=== PATIENT | female | born 1970 | race Caucasian/White ===

== ENCOUNTER 2018-11-16 20:00 | Inpatient (IN) | payer MEDICAID ==
[~2018-11-16] VITALS: Ht 157.5 cm; Wt 81.5 kg
[~2018-11-16 20:00] MED LIST: MTF1000T PO
[2018-11-16 20:32] VITALS: Ht 157.5 cm; Wt 81.5 kg
[2018-11-16] MEDS ORDERED: PIPER-TAZO 3.375 GM IV (PMX) 100 ML IVPB STA (20:43)
[2018-11-16] MEDS ORDERED: SODIUM CHLORIDE 0.9% 1L BAG IV* STA (20:43)
[2018-11-16] MEDS ORDERED: VANCOMYCIN 1 GM (PMX) 250 ML IVPB STA (20:43)
[2018-11-16] MEDS ORDERED: ONDANSETRON 4 MG INJ IV STA (20:43)
[2018-11-16] MEDS ORDERED: ACETAMINOPHEN 325 MG TAB PO STA (20:43)
[2018-11-16] MEDS ORDERED: CLINDAMYCIN 900 MG/D5W (PMX) 50 ML IVPB STA (20:43)
[2018-11-16] MEDS ORDERED: morphine 4 MG/ML VIAL IV STA (20:43)
[2018-11-16] MEDS ORDERED: GLUCOSE GEL 15 GRAM TUBE PO PRN ×2 (22:00)
[2018-11-16] MEDS ORDERED: GLUCAGON 1 MG INJ IM PRN (22:00)
[2018-11-16] MEDS ORDERED: ACCU-CHEK XX ONE (22:00)
[2018-11-16] MEDS ORDERED: GLUCOSE GEL 15 GRAM TUBE BUCCAL PRN (22:00)
[2018-11-16] MEDS ORDERED: DEXTROSE 50% 50 ML SYRINGE IV PRN ×2 (22:00)
[2018-11-16] MEDS ORDERED: INSULIN LISPRO 100 UNIT/ML VIAL SC ONE (22:00)
--- NOTE | 2018-11-16 23:05 | ERD ---
ER Documentation Chief Complaint Chief Complaint C/O LT SIDED CP, LT FLANK PAIN, LT GROING PAIN, COUGH AND CHILLS X6 DAYS HPI 47-year-old female with a history of diabetes presents to the emergency room with multiple complaints. The patient is very limited and difficult historian. She states poor compliance with diabetes regimen. Her main complaint is that patient is having left-sided mons pubis swelling and pain. Patient also describes a multitude of different complaints including left-sided chest pain, abdominal pain, cough and chills. The patient is noted to have a fever at triage. A code sepsis was initiated. Remainder of HPI is somewhat limited. Pain is moderate, constant and worse with movement. Translation services were utilized during this patient's encounter Language: Guatemalan Source: In person ROS All systems reviewed and are negative except as per history of present illness. Medications Home Meds Reported Medications Metformin* (Glucophage*) 1,000 Mg Tablet, 1000 MG PO WITH BREAKFAST DINNE, #30 TAB 11/16/18 Allergies Allergies: Coded Allergies: No Known Allergy (Unverified , 11/16/18) PMhx/Soc Medical and Surgical Hx: pt denies Surgical Hx History of Surgery: No Anesthesia Reaction: No Hx Neurological Disorder: No Hx Respiratory Disorders: No Hx Cardiac Disorders: Yes (HTN) Hx Psychiatric Problems: No Hx Miscellaneous Medical Probl: No Hx Alcohol Use: No Hx Substance Use: No Hx Tobacco Use: No Smoking Status: Never smoker FmHx Family History: diabetes Physical Exam Vitals Vital Signs Date Temp Pulse Resp B/P (MAP) Pulse Ox O2 O2 Flow FiO2 Time Delivery Rate 11/16/18 100.7 100 18 185/93 94 Room Air 20:58 (123) 11/16/18 101.2 109 22 179/91 95 20:32 (120) Physical Exam General: Nourished Head: Normocephalic, atraumatic. Eyes: Pupils equally reactive, EOM intact ENT: Moist mucous membranes Neck: Supple, no lymphadenopathy Respiratory: Lungs clear bilaterally, no distress Cardiovascular: Tachycardia, no murmurs, rubs, or gallops Abdominal: Soft, non-tender, non-distended, no peritoneal signs : Chaperoned exam reveals swelling erythema warmth and tenderness to the mons pubis on the left side with associated crepitus. MSK: No edema, no unilateral swelling, 5/5 strength Neurologic: Alert and oriented, moving all extremities, normal speech, no focal weakness, no cerebellar signs Skin: No rash Psych: Normal mood Result Diagram: 11/16/18202911/16/18 2030 Results 24 hrs Laboratory Tests Test 11/16/18 20:30 11/16/18 20:46 11/16/18 22:33 White Blood Count 14.7 10^3/ul Red Blood Count 4.04 10^6/ul Hemoglobin 11.1 g/dl Hematocrit 33.4 % Mean Corpuscular Volume 82.7 fl Mean Corpuscular Hemoglobin 27.5 pg Mean Corpuscular 33.2 g/dl Hemoglobin Concent Red Cell Distribution Width 16.2 % Platelet Count 269 10^3/UL Mean Platelet Volume 13.8 fl Immature Granulocytes % 1.400 % Neutrophils % % Segmented Neutrophils % (Manual) 69 % Band Neutrophils % (Manual) 18 % Lymphocytes % % Lymphocytes % (Manual) 6 % Monocytes % % Monocytes % (Manual) 5 % Eosinophils % % Basophils % % Myelocytes % (Manual) 1 % Promyelocytes % (Manual) 1 % Nucleated Red Blood Cells % 0.3 /100WBC Immature Granulocytes # 0.200 10^3/ul Neutrophils # 10^3/ul Neutrophils # (Manual) 10.5 10^3/ul Band Neutrophils # 2.6 10^3/ul Lymphocytes (Manual) 0.8 10^3/ul Lymphocytes # 10^3/ul Monocytes # 10^3/ul Monocytes # (Manual) 0.7 10^3/ul Eosinophils # 10^3/ul Basophils # 10^3/ul Myelocytes # 0.1 10^3/ul Promyelocytes # 0.1 10^3/ul Nucleated Red Blood Cells # 10^3/ul Platelet Estimate NORMAL Giant Platelets 1 % Polychromasia 1+ Poikilocytosis 1+ Anisocytosis 1+ Macrocytosis 1+ Erythrocyte Sedimentation Rate 125 mm/Hr Prothrombin Time 15.4 Sec Prothrombin Time Ratio 1.2 INR International Normalized Ratio 1.21 Activated Partial Thromboplast 33.1 Sec Time Sodium Level 124 mmol/L Potassium Level 3.5 mmol/L Chloride Level 87 mmol/L Carbon Dioxide Level 23 mmol/L Anion Gap 14 Blood Urea Nitrogen 56 mg/dl Creatinine 2.00 mg/dl Est Glomerular Filtrat Rate mL/min 27 mL/min Glucose Level 631 mg/dl Calcium Level 8.3 mg/dl Total Bilirubin 0.3 mg/dl Direct Bilirubin 0.00 mg/dl Indirect Bilirubin 0.3 mg/dl Aspartate Amino Transf (AST/SGOT) 34 IU/L Alanine 42 IU/L Aminotransferase (ALT/SGPT) Alkaline Phosphatase 304 IU/L Troponin I 0.018 ng/ml C-Reactive Protein 58.9 mg/dl Total Protein 6.8 g/dl Albumin 2.7 g/dl Globulin 4.10 g/dl Albumin/Globulin Ratio 0.65 Serum HCG, Qualitative NEGATIVE POC Venous Lactate 2.3 mmol/L Bedside Glucose 552 mg/dL Current Medications Medications Dose Sig/Marybeth Start Time Status Last (Trade) Ordered Route PRN Stop Time Admin Dose Reason Admin Sodium 2,450 ml BOLUS OVER 2 11/16/18 DC 11/16/18 Chloride HOURS STAT 20:43 20:50 (NS) IV* 11/16/18 20:47 650 mg ONCE STAT 11/16/18 DC 11/16/18 Acetaminophen PO 20:43 20:53 (Tylenol 11/16/18 20:47 Tab) Morphine 4 mg ONCE STAT 11/16/18 DC 11/16/18 Sulfate IV 20:43 20:52 (morphine) 11/16/18 20:47 Ondansetron 4 mg ONCE STAT 11/16/18 DC 11/16/18 HCl (Zofran IV 20:43 20:52 Inj) 11/16/18 20:47 Vancomycin 250 ml @ ONCE STAT 11/16/18 DC 11/16/18 HCl 125 mls/hr IVPB 20:43 21:36 11/16/18 22:42 Clindamycin 50 ml @ 50 ONCE STAT 11/16/18 DC 11/16/18 HCl/ mls/hr IVPB 20:43 21:35 Dextrose 11/16/18 21:42 Piperacillin 100 ml @ ONCE STAT 11/16/18 DC 11/16/18 Sod/ 200 mls/hr IVPB 20:43 20:53 Tazobactam 11/16/18 21:12 Sod Insulin 10 unit ONCE ONCE 11/16/18 DC Human SC 22:00 Lispro 11/16/18 22:01 (Humalog) Diagnostic 1 ea 2 HRS AFTER 11/16/18 DC 11/16/18 Test (Pha) HUMALOG ONCE 22:00 22:38 (Accu-Chek) XX 11/16/18 22:01 1 ea NOTE XX 11/16/18 Miscellaneous 22:00 Information Glucose 15 gm Q15M PRN 11/16/18 (Glutose) PO DECREASED 22:00 GLUCOSE Glucose 22.5 gm Q15M PRN 11/16/18 (Glutose) PO DECREASED 22:00 GLUCOSE Dextrose 25 ml Q15M PRN 11/16/18 (D50w IV DECREASED 22:00 Syringe) GLUCOSE Dextrose 50 ml Q15M PRN 11/16/18 (D50w IV DECREASED 22:00 Syringe) GLUCOSE Glucagon 1 mg Q15M PRN 11/16/18 (Glucagen) IM DECREASED 22:00 GLUCOSE Glucose 15 gm Q15M PRN 11/16/18 (Glutose) BUCCAL 22:00 DECREASED GLUCOSE Procedures/MDM EKG, MONITORS, & DIAGNOSTIC IMAGING: EKG: I reviewed and interpreted a 12-lead EKG. Rhythm: Normal sinus rhythm ST Changes: No contiguous ST segment elevations T waves: No contiguous T wave inversions Impression: No evidence of acute cardiac ischemia Chest x-ray: IMPRESSION: Low lung volumes. Right lung base patchy consolidation. Follow-up to resolution to exclude underlying neoplasm. RPTAT: QQ CT a/p IMPRESSION: 1. LARGE AMOUNT OF SUBCUTANEOUS AIR AND FATTY STRANDING WITHIN THE LEFT PERINEUM AND VAGINAL FOLD, WHICH EXTENDS SUPERIORLY ALONG THE LEFT ANTERIOR PELVIC WALL UP TO THE LEFT UPPER ABDOMEN, AT THE LEVEL OF THE KIDNEYS. FINDINGS ARE HIGHLY CONCERNING FOR GANGRENE/NECROTIZING FASCIITIS. RECOMMEND SURGICAL CONSULTATION. 2. No gross evidence of bowel obstruction. Stool filled loops of large bowel suggestive of constipation. 3. Mild bilateral hydronephrosis without evidence of renal/ureteric calculi. There is also distension of the bladder with air-fluid level. Findings are concerning for underlying urinary tract infection. Recommend correlation with urinalysis. 4. Mild hepatomegaly. Call report was made with Dr. Bronson @ 10:35 PM on 11/16/18 LAB INTERPRETATION: I reviewed the laboratory testing and it shows leukocytosis, hyponatremia, lactic acid, acute renal insufficiency MEDICAL DECISION MAKING: The patient's clinical exam and history is very concerning for Wilson's gangrene and necrotizing fasciitis. The patient is a diabetic with skin breakdown and crepitus to the perineal area. Patient warrants aggressive resuscitation and surgical consultation. Code sepsis was initiated. Immediately after my assessment of the patient an emergent phone call was placed to the general surgeon control and recovery special tactics Dr. Brito. I expressed my concern for necrotizing process. He is notified and request to be updated on the work-up. 10 points If high suspicion for necrotizing fasciitis through clinical history and physical exam, do not calculate a LRINEC score and go straight to operative [facility]. High Risk for Necrotizing Soft Tissue Infection. Scores of 8 had a PPV of 93.4% for NSTIs. Work-up as above or emergent operative debridement. ER COURSE: * Patient was treated with a 30 cc/kg bolus of saline. Broad-spectrum antibiotics including vancomycin, Zosyn, clindamycin * Patient's hemodynamics remained stable. The patient has hyperglycemia without evidence of diabetic ketoacidosis. Humalog provided. * The patient's laboratory testing is very consistent with necrotizing fasciit is. * Another phone call was placed to Dr. Brito. I spoke to him around 10:30 PM. We discussed the case. He is requesting LICENSING SERVICES CLERK involvement. Dr. Mott is also notified around this time. * The patient needs to be taken directly to the operating room. CONSULTATION: General surgeon Dr. Brito LICENSING SERVICES CLERK Dr Mott DISPOSITION PLAN: Direct to OR then likely ICU Critical Care Note: Total time: 45 minutes Indication/Organ System Threat: Necrotizing fasciitis I spent the above amount of critical care time with the patient, not including billable procedures. This included chart review, consultations, repeat bedside evaluations, and titration of appropriate medications to prevent cardiopulmonary or respiratory collapse. Sepsis Documentation: Patient's infectious symptoms have not stabilized and the patient is at risk of rapid decompensation. The patient will be admitted for careful hydration, antibiotic therapy, and infectious source control. SEVERE SEPSIS CRITERIA: Infectious source: Necrotizing fasciitis End organ damage indicated by: [Lactate > 2.0 mmol/L SEPSIS MANAGEMENT Time of recognition of sepsis: Upon MD assessment. Time of recognition of severe sepsis: Upon MD assessment. Time of recognition of septic shock: No septic shock at this time. 3 HOUR BUNDLE Blood cultures x 2 before broad-spectrum antibiotics: Yes 30 ml/kg NS bolus completed Initial lactate less than 3 Repeat lactate pending repeat SEPTIC SHOCK ASSESSMENT: No lactic acid > 4.0 No persistent hypotension (SBP < 90 or 40 mmHg drop, MAP < 65) despite 30 mL/kg IV fluid bolus VOLUME REASSESSMENT FOR SEPTIC SHOCK: The patient does not meet criteria for septic shock in the emergency department at this time PERSISTENT HYPOTENSION TREATMENT: Comfort care no Central line not Required Vasopressor started not required I considered further perfusion assessment with CVP measurement, SCVO2, bedside ultrasound volume assessment, passive leg raise, trial of further fluid bolus. And proceeded with 30 ml/kg fluid bolus of NSS, broad spectrum antibiotics, and admission. 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
--- NOTE | 2018-11-17 00:03 | PREAC ---
Date/Time of Note Date/Time of Note DATE: 11/17/18 TIME: 00:01 Anesthesia Eval and Record Evaluation Time Pre-Procedure Interview DATE: 11/17/18 TIME: 00:01 Age 47 Sex female NPO: 8 hrs Preoperative diagnosis necrotizing fascitis of perineum and lower [id number], sepsis Planned procedure incision and debridement of perineum and lower abdomen Past Medical History Past Medical History: Includes Cardio: HTN Endo: Diabetes Neuro: Peripheral neuropathy Renal: OTONIEL Heme: Anemia Infection(s): Other (sepsis) Surgery & Anesthesia Issues No known issue Meds Anticoagulation: No Beta Kapil within 24 hr: No Reason Beta Kapil not given: Pt. not on B-Kapil Reported Medications Metformin* (Glucophage*) 1,000 Mg Tablet, 1000 MG PO WITH BREAKFAST DINNE, #30 TAB 11/16/18 Current Medications Miscellaneous Information 1 ea NOTE XX ; Start 11/16/18 at 22:00 Glucose (Glutose) 15 gm Q15M PRN PO DECREASED GLUCOSE; Start 11/16/18 at 22:00 Glucose (Glutose) 22.5 gm Q15M PRN PO DECREASED GLUCOSE; Start 11/16/18 at 22:00 Dextrose (D50w Syringe) 25 ml Q15M PRN IV DECREASED GLUCOSE; Start 11/16/18 at 22:00 Dextrose (D50w Syringe) 50 ml Q15M PRN IV DECREASED GLUCOSE; Start 11/16/18 at 22:00 Glucagon (Glucagen) 1 mg Q15M PRN IM DECREASED GLUCOSE; Start 11/16/18 at 22:00 Glucose (Glutose) 15 gm Q15M PRN BUCCAL DECREASED GLUCOSE; Start 11/16/18 at 22:00 Meds reviewed: Yes Allergies Coded Allergies: No Known Allergy (Unverified , 11/16/18) Allergies Reviewed: Yes Labs/Studies Labs Reviewed: Reviewed by anesthesiologist Result Diagram: 11/16/18202911/16/182029 Laboratory Tests 11/16/18 20:30 Blood Bank Test 11/16/18 22:58 Antibody Screen NEGATIVE Blood Type A POSITIVE test: Negative Pre-procedure Exam Last vitals Vital Signs Date Temp Pulse Resp B/P (MAP) Pulse Ox O2 O2 Flow FiO2 Time Delivery Rate 11/16/18 90 18 155/79 95 Room Air 23:04 (104) 11/16/18 100.7 20:58 Airway: Adequate mouth opening, Adequate thyromental dist Mallampati: Mallampati II Teeth: Normal Lung: Normal Heart: Normal ASA Physical Status ASA physical status: 4 Emergency: E Planned Anesthetic General/MAC: ETT Planned Pain Management Parenteral pain med Pre-operative Attestations Prior to commencing anesthesia and surgery, the patient was re-evaluated, there was verification of: *The patient's identity *The results of appropriate recent lab work and preoperative vital signs *The above evaluation not changing prior to induction *Anesthetic plan, risk benefits, alternative and complications discussed with patient/family; questions answered; patient/family understands, accepts and wishes to proceed. EMILY YOUNGER Nov 17, 2018 00:03
--- NOTE | 2018-11-17 00:17 | CONS ---
Assessment/Plan Assessment/Plan Assessment/Plan (Daily) 47-year-old insulin-dependent diabetic with 1 week history of left perineum and left labial left suprapubic epi-pubic tenderness swelling CAT scan suggestive of necrotizing fasciitis with gas in the abdominal wall tracking up to the anterior lateral aspect of the abdominal wall and down along the left mons labia and up to the proximal thigh. Her graph explained to the patient that this very likely represents necrotizing fasciitis initial inciting injury is unclear. However patient should undergo urgent exploration with wide debridement. The primary portion of this procedure appears to be gynecologic is patient believes this began in the focal point of gas is in the left perineum labial region. Therefore I have asked the gynecology be involved either his primary or at least as co-surgeon Talk to Dr. Mott and he will be available. Risk benefits alternatives were discussed including possibility of need for repeated expirations debridement and possible reconstruction of soft tissue. Consultation Date/Type/Reason Admit Date/Time Date of Consultation: Nov 17, 2018 Type of Consult General surgery Reason for Consultation Left anterior abdominal wall and left perineum, labial infection suspicious for necrotizing fasciitis Requesting Provider: LULU GUZMAN MD Date/Time of Note DATE: 11/17/18 TIME: 00:11 Hx of Present Illness Patient 47-year-old diabetic on insulin presented to the emergency room with 1 week worsening pain in the left perineum mons pubis. Patient feels that this began in the vagina on the left side etiology is unclear. Pain and swelling progressively worsened the last several days patient presented to the emergency room today for evaluation. Work-up including imaging and labs highly suspicious for necrotizing fasciitis of the left labia and perineum proximal inner thigh and tracking along the anterior lateral aspect of the abdomen up to the level of the umbilicus. White blood cell count 15,000 graph patient denies any other past medical history past surgical history only medications is insulin for diabetes. Diabetes, insulin-dependent otherwise normal Past Medical History Medical History: no pertinent history Home Meds Reported Medications Metformin* (Glucophage*) 1,000 Mg Tablet, 1000 MG PO WITH BREAKFAST DINNE, #30 TAB 11/16/18 Medications Current Medications Miscellaneous Information 1 ea NOTE XX ; Start 11/16/18 at 22:00 Glucose (Glutose) 15 gm Q15M PRN PO DECREASED GLUCOSE; Start 11/16/18 at 22:00 Glucose (Glutose) 22.5 gm Q15M PRN PO DECREASED GLUCOSE; Start 11/16/18 at 22:00 Dextrose (D50w Syringe) 25 ml Q15M PRN IV DECREASED GLUCOSE; Start 11/16/18 at 22:00 Dextrose (D50w Syringe) 50 ml Q15M PRN IV DECREASED GLUCOSE; Start 11/16/18 at 22:00 Glucagon (Glucagen) 1 mg Q15M PRN IM DECREASED GLUCOSE; Start 11/16/18 at 22:00 Glucose (Glutose) 15 gm Q15M PRN BUCCAL DECREASED GLUCOSE; Start 11/16/18 at 22:00 Allergies: Coded Allergies: No Known Allergy (Unverified , 11/16/18) Social History Smoking Status: Never smoker Exam/Review of Systems Exam Vitals Vital Signs Date Temp Pulse Resp B/P (MAP) Pulse Ox O2 O2 Flow FiO2 Time Delivery Rate 11/17/18 99.6 90 18 176/75 100 Room Air 00:05 (108) Intake and Output 11/16/18 11/16/18 11/17/18 1515:00 23:00 07:00 IntakeIntake Total 2600 ml BalanceBalance 2600 ml Exam Alert and oriented complaining of pain in the left perineum, left suprapubic and left abdominal wall HEENT pupils equal and react light sclerae anicteric. Lungs clear to auscultation. Heart regular rate and rhythm no gallops was rubs abdomen soft with marked erythema tenderness left epi-pubic suprapubic and mons. There is tenderness along the left abdominal wall there was no crepitus. Results Result Diagram: 11/16/18202911/16/182029 Results 24hrs Laboratory Tests Test 11/16/18 20:30 11/16/18 20:46 11/16/18 22:33 11/16/18 22:58 White Blood Count 14.7 H Red Blood Count 4.04 L Hemoglobin 11.1 L Hematocrit 33.4 L Mean Corpuscular 82.7 Volume Mean Corpuscular 27.5 L Hemoglobin Mean Corpuscular 33.2 Hemoglobin Concent Red Cell 16.2 H Distribution Width Platelet Count 269 Mean Platelet Volume 13.8 H Immature 1.400 H Granulocytes % Neutrophils % Segmented 69 Neutrophils % (Manual) Band Neutrophils % 18 H (Manual) Lymphocytes % Lymphocytes % 6 L (Manual) Monocytes % Monocytes % (Manual) 5 Eosinophils % Basophils % Myelocytes % 1 H (Manual) Promyelocytes % 1 H (Manual) Nucleated Red Blood 0.3 H Cells % Immature 0.200 H Granulocytes # Neutrophils # Neutrophils # 10.5 H (Manual) Band Neutrophils # 2.6 H Lymphocytes (Manual) 0.8 Lymphocytes # Monocytes # Monocytes # (Manual) 0.7 Eosinophils # Basophils # Myelocytes # 0.1 H Promyelocytes # 0.1 H Nucleated Red Blood Cells # Platelet Estimate NORMAL Giant Platelets 1 H Polychromasia 1+ Poikilocytosis 1+ Anisocytosis 1+ Macrocytosis 1+ Erythrocyte 125 H Sedimentation Rate Prothrombin Time 15.4 H Prothrombin Time 1.2 Ratio INR International 1.21 Normalized Ratio Activated 33.1 Partial Thromboplast Time Sodium Level 124 L Potassium Level 3.5 Chloride Level 87 L Carbon Dioxide Level 23 Anion Gap 14 H Blood Urea Nitrogen 56 H Creatinine 2.00 H Est Glomerular 27 L Filtrat Rate mL/min Glucose Level 631 *H Calcium Level 8.3 L Total Bilirubin 0.3 Direct Bilirubin 0.00 Indirect Bilirubin 0.3 Aspartate Amino 34 Transf (AST/SGOT) Alanine 42 Aminotransferase (AL T/SGPT) Alkaline Phosphatase 304 H Troponin I 0.018 C-Reactive Protein 58.9 H Total Protein 6.8 Albumin 2.7 L Globulin 4.10 H Albumin/Globulin 0.65 Ratio Serum HCG, NEGATIVE Qualitative POC Venous Lactate 2.3 *H Bedside Glucose 552 *H Lactic Acid Level 2.3 *H Medications Medication Current Medications Miscellaneous Information 1 ea NOTE XX ; Start 11/16/18 at 22:00 Glucose (Glutose) 15 gm Q15M PRN PO DECREASED GLUCOSE; Start 11/16/18 at 22:00 Glucose (Glutose) 22.5 gm Q15M PRN PO DECREASED GLUCOSE; Start 11/16/18 at 22:00 Dextrose (D50w Syringe) 25 ml Q15M PRN IV DECREASED GLUCOSE; Start 11/16/18 at 22:00 Dextrose (D50w Syringe) 50 ml Q15M PRN IV DECREASED GLUCOSE; Start 11/16/18 at 22:00 Glucagon (Glucagen) 1 mg Q15M PRN IM DECREASED GLUCOSE; Start 11/16/18 at 22:00 Glucose (Glutose) 15 gm Q15M PRN BUCCAL DECREASED GLUCOSE; Start 11/16/18 at 22:00 JOHANN REYES MD Nov 17, 2018 00:17
[2018-11-17] MEDS ORDERED: SOD CHLORIDE 0.9% 1,000 ML IV SCH (00:34)
[2018-11-17] MEDS ORDERED: ALBUTEROL HFA 8 GM INHALER INH PRN (01:00)
[2018-11-17] MEDS ORDERED: VANCOMYCIN IV PER PHARMACY XX SCH (01:00)
[2018-11-17] MEDS ORDERED: DEXTROSE 50% 50 ML SYRINGE IV PRN ×2 (01:00)
[2018-11-17] MEDS: ACCU-CHEK XX SCH ×4 (01:00→04:00)
[2018-11-17] MEDS ORDERED: INSULIN HUMAN REGULAR 100 UNIT in SOD CHLORIDE 0.9% 99 ML IV SCH (01:00)
[2018-11-17] MEDS ORDERED: ONDANSETRON 4 MG INJ IV PRN (01:00)
[2018-11-17] MEDS ORDERED: IPRATROPIUM (HFA) 12.9 GM INHALER INH PRN (01:00)
[2018-11-17] MEDS ORDERED: ACETAMINOPHEN 650 MG SUPP PR PRN (01:00)
[2018-11-17] MEDS ORDERED: PROPOFOL 20 ML ONE (01:07)
--- NOTE | 2018-11-17 01:47 | QN ---
Documentation Comment Patient with extensive inflammation of pelvic and lower abdominal area highly suspicious for gangrene necrotizing fasciitis. Patient requires extensive debridement which needs to be done as soon as poss ible in a facility with higher level of care for extensive pelvic surgery. Will request for an emergency transfer to a higher level of care. NEGRITA OSCAR MD Nov 17, 2018 01:47
[2018-11-17 03:15] VITALS: BP 169/78; PULSE 88; RESP 13
[2018-11-17] MEDS ORDERED: HYDROmorphONE 0.5 MG/0.5 ML SYG IV STA (03:18)
[2018-11-17] MEDS ORDERED: HYDROmorphONE 0.5 MG/0.5 ML SYG ONE (03:24)
[2018-11-17] MEDS ORDERED: SOD CHLORIDE 0.9% 1,000 ML IV ONE (03:30)
[2018-11-17 04:00] VITALS: BP 149/80; PULSE 84; RESP 13
[2018-11-17] MEDS ORDERED: INSULIN REGULAR, HUMAN 100 UNIT/1 ML 3ML VIAL SC ONE (04:00)
[2018-11-17 04:30] VITALS: BP 147/83; PULSE 84; RESP 14
[2018-11-17] MEDS ORDERED: VANCOMYCIN 750 MG (PMX) 250 ML IVPB SCH (04:30)
[2018-11-17 05:00] VITALS: BP 174/80; PULSE 87; RESP 13
--- NOTE | 2018-11-17 05:00 | HP ---
Date/Time of Note Date/Time of Note DATE: 11/17/18 TIME: 04:41 Assessment/Plan VTE Prophylaxis SCD applied (from Nsg): Yes Pharmacological prophylaxis: NA/contraindicated Pharm contraindication: other (Awaiting surgical procedure) Lines/Catheters IV Catheter Type (from Nrsg): Peripheral IV Assessment/Plan Assessment/Plan 47-year-old female with a history of hypertension and type 1 diabetes being transferred to [facility] for higher level care after CT abdomen/pelvis showed LARGE AMOUNT OF SUBCUTANEOUS AIR AND FATTY STRANDING WITHIN THE LEFT PERINEUM AND VAGINAL FOLD, WHICH EXTENDS SUPERIORLY ALONG THE LEFT ANTERIOR PELVIC WALL UP TO THE LEFT UPPER ABDOMEN, AT THE LEVEL OF THE KIDNEYS. FINDINGS ARE HIGHLY CONCERNING FOR GANGRENE/NECROTIZING FASCIITIS. ASSESSMENT 1. Left perineum/anterior pelvic wall and abdominal gangrene/necrotizing fasciitis 2. Sepsis, secondary to above 3. Presumed acute renal insufficiency 4. Type 1 diabetes with severe hyperglycemia: No DKA 5. Lactic acidosis (initial lactic acid 2.4, trended up to 4.4) 6. Anemia, hemoglobin 11 7. Hyponatremia with a sodium of 124 PLAN -Patient was treated with vancomycin, Zosyn and clindamycin and IV fluid as well as insulin. Initial plan was for the patient to be taken to the OR, however due to the extensive nature of her presentation, decision was made to transfer the patient to [facility] for higher level care. -Blood glucose trended down to 339 from initial 630 Result Diagram: 11/16/18202911/16/182029 Results 24hrs Laboratory Tests Test 11/16/18 20:30 11/16/18 20:46 11/16/18 22:33 11/16/18 22:58 White Blood Count 14.7 H Red Blood Count 4.04 L Hemoglobin 11.1 L Hematocrit 33.4 L Mean Corpuscular 82.7 Volume Mean Corpuscular 27.5 L Hemoglobin Mean Corpuscular 33.2 Hemoglobin Concent Red Cell 16.2 H Distribution Width Platelet Count 269 Mean Platelet Volume 13.8 H Immature 1.400 H Granulocytes % Neutrophils % Segmented 69 Neutrophils % (Manual) Band Neutrophils % 18 H (Manual) Lymphocytes % Lymphocytes % 6 L (Manual) Monocytes % Monocytes % (Manual) 5 Eosinophils % Basophils % Myelocytes % 1 H (Manual) Promyelocytes % 1 H (Manual) Nucleated Red Blood 0.3 H Cells % Immature 0.200 H Granulocytes # Neutrophils # Neutrophils # 10.5 H (Manual) Band Neutrophils # 2.6 H Lymphocytes (Manual) 0.8 Lymphocytes # Monocytes # Monocytes # (Manual) 0.7 Eosinophils # Basophils # Myelocytes # 0.1 H Promyelocytes # 0.1 H Nucleated Red Blood Cells # Platelet Estimate NORMAL Giant Platelets 1 H Polychromasia 1+ Poikilocytosis 1+ Anisocytosis 1+ Macrocytosis 1+ Erythrocyte 125 H Sedimentation Rate Prothrombin Time 15.4 H Prothrombin Time 1.2 Ratio INR International 1.21 Normalized Ratio Activated 33.1 Partial Thromboplast Time Sodium Level 124 L Potassium Level 3.5 Chloride Level 87 L Carbon Dioxide Level 23 Anion Gap 14 H Blood Urea Nitrogen 56 H Creatinine 2.00 H Est Glomerular 27 L Filtrat Rate mL/min Glucose Level 631 *H Calcium Level 8.3 L Total Bilirubin 0.3 Direct Bilirubin 0.00 Indirect Bilirubin 0.3 Aspartate Amino 34 Transf (AST/SGOT) Alanine 42 Aminotransferase (AL T/SGPT) Alkaline Phosphatase 304 H Troponin I 0.018 C-Reactive Protein 58.9 H Total Protein 6.8 Albumin 2.7 L Globulin 4.10 H Albumin/Globulin 0.65 Ratio Serum HCG, NEGATIVE Qualitative POC Venous Lactate 2.3 *H Bedside Glucose 552 *H Lactic Acid Level 2.3 *H Test 11/17/18 00:49 11/17/18 02:39 11/17/18 03:36 Lactic Acid Level 4.4 *H Bedside Glucose 330 H 319 H HPI/ROS Admit Date/Time Admit Date/Time Hx of Present Illness Patient is a 47-year-old female with a history of hypertension and type 1 diabetes who presents to the ER complaining of left suprapubic, left flank, left pubic area pain for at least 1 week. On presentation to the ER, she was febrile with a temperature of 101.7, tachycardic with a heart rate of 109, BP 179/91. I nitial WBC almost 15,000. Initial lab shows a sodium of 124, creatinine 2, glucose 630, hemoglobin 11, initial lactic acid 2.4, but has been as high as 4.4. Alkaline phosphatase around 300. Patient was started on Zosyn, vancomycin and clindamycin. Chest x-ray shows low lung volumes. Right lung base patchy consolidation. Follow-up to resolution to exclude underlying neoplasm. CT abdomen/pelvis shows the following. 1. LARGE AMOUNT OF SUBCUTANEOUS AIR AND FATTY STRANDING WITHIN THE LEFT PERINEUM AND VAGINAL FOLD, WHICH EXTENDS SUPERIORLY ALONG THE LEFT ANTERIOR PELVIC WALL UP TO THE LEFT UPPER ABDOMEN, AT THE LEVEL OF THE KIDNEYS. FINDINGS ARE HIGHLY CONCERNING FOR GANGRENE/NECROTIZING FASCIITIS. RECOMMEND SURGICAL CONSULTATION. 2. No gross evidence of bowel obstruction. Stool filled loops of large bowel suggestive of constipation. 3. Mild bilateral hydronephrosis without evidence of renal/ureteric calculi. There is also distension of the bladder with air-fluid level. Findings are concerning for underlying urinary tract infection. Recommend correlation with urinalysis. 4. Mild hepatomegaly. Patient was seen by the on-call surgeon with plan to be taken to the OR, however a decision was made to transfer for higher level care. At the time of transfer, blood glucose was 339, down from 630. There was no sign of DKA. PMH/Family/Social Past Medical History Medical History: diabetes, hypertension Medications Current Medications Miscellaneous Information 1 ea NOTE XX ; Start 11/16/18 at 22:00 Glucose (Glutose) 15 gm Q15M PRN PO DECREASED GLUCOSE; Start 11/16/18 at 22:00 Glucose (Glutose) 22.5 gm Q15M PRN PO DECREASED GLUCOSE; Start 11/16/18 at 22:00 Dextrose (D50w Syringe) 25 ml Q15M PRN IV DECREASED GLUCOSE; Start 11/16/18 at 22:00 Dextrose (D50w Syringe) 50 ml Q15M PRN IV DECREASED GLUCOSE; Start 11/16/18 at 22:00 Glucagon (Glucagen) 1 mg Q15M PRN IM DECREASED GLUCOSE; Start 11/16/18 at 22:00 Glucose (Glutose) 15 gm Q15M PRN BUCCAL DECREASED GLUCOSE; Start 11/16/18 at 22:00 Sodium Chloride 1,000 ml @ 100 mls/hr Q10H IV ; Start 11/17/18 at 00:34 Ondansetron HCl (Zofran Inj) 4 mg Q6H PRN IV NAUSEA AND/OR VOMITING; Start 11/17/18 at 01:00 Albuterol (Ventolin Hfa) 4 puff Q2H RESP THERAPY PRN INH SHORTNESS OF BREATH; Start 11/17/18 at 01:00 Ipratropium [place] (Atrovent Hfa) 4 puff Q2H RESP THERAPY PRN INH SHORTNESS OF BREATH; Start 11/17/18 at 01:00 Acetaminophen (Tylenol Supp) 650 mg Q4H PRN MD PAIN LEVEL 1-3 OR FEVER; Start 11/17/18 at 01:00 Pantoprazole (Protonix Iv) 40 mg DAILY@06 IV ; Start 11/17/18 at 06:00 Diagnostic Test (Pha) (Accu-Chek) 1 ea Q1H XX ; Start 11/17/18 at 01:00 Insulin Human Regular 100 unit/ Sodium Chloride 100 ml @ 0 mls/hr PER PROTOCOL IV ; Start 11/17/18 at 01:00 Miscellaneous Information (* Miscellaneous Pharmacy Order) Treatment of Hypoglycemia: 1.BG 51... Per protocol XX ; Start 11/17/18 at 01:00 Dextrose (D50w Syringe) 25 ml Q15M PRN IV .DECREASED GLUCOSE; Start 11/17/18 at 01:00 Dextrose (D50w Syringe) 50 ml Q15M PRN IV .DECREASED GLUCOSE; Start 11/17/18 at 01:00 Vancomycin HCl (Vanco Iv Per Pharmacy) VANCOMYCIN PER PHARMACY PER PROTOCOL XX ; Start 11/17/18 at 01:00 Piperacillin Sod/ Tazobactam Sod 50 ml @ 100 mls/hr Q6 IVPB ; Start 11/17/18 at 06:00 Vancomycin/Sodium Chloride 250 ml @ 125 mls/hr ONCE IVPB ; Start 11/17/18 at 04:30; Stop 11/17/18 at 08:00 Coded Allergies: No Known Allergy (Unverified , 11/16/18) Past Surgical History Past Surgical Hx: other (See HPI) Family History Significant Family History: no pertinent family hx Social History Alcohol Use: none Smoking Status: Unknown if ever smoked Drug Use: none Exam/Review of Systems Vital Signs Vitals Vital Signs Date Temp Pulse Resp B/P (MAP) Pulse Ox O2 O2 Flow FiO2 Time Delivery Rate 11/17/18 99.6 90 18 176/75 100 Room Air 00:05 (108) Intake and Output 11/16/18 11/16/18 11/17/18 1515:00 23:00 07:00 IntakeIntake Total 2600 ml BalanceBalance 2600 ml Exam Constitutional: alert, oriented Head: normocephalic, atraumatic Eyes: EOMI, PERRL Respiratory: clear to auscultation Cardiovascular: other (Tachycardic regular rhythm) Gastrointestinal: soft, tender, other (Nondistended, no rigidity) Genitourinary - Female: other (Left epi-pubic tenderness and erythema) JOHANN GIBBS MD Nov 17, 2018 04:51
--- NOTE | 2018-11-17 05:02 | DS ---
Date/Time of Note Date/Time of Note DATE: 11/17/18 TIME: 05:00 Discharge Summary Admission/Discharge Info Admit Date/Time Nov 16, 2018 at 22:43 Discharge Date/Time Discharge Diagnosis 1. Left perineum/anterior pelvic wall and abdominal gangrene/necrotizing f asciitis 2. Sepsis, secondary to above 3. Presumed acute renal insufficiency 4. Type 1 diabetes with severe hyperglycemia: No DKA 5. Lactic acidosis (initial lactic acid 2.4, trended up to 4.4) 6. Anemia, hemoglobin 11 7. Hyponatremia with a sodium of 124 PLAN -Patient was treated with vancomycin, Zosyn and clindamycin and IV fluid as well as insulin. Initial plan was for the patient to be taken to the OR, however due to the extensive nature of her presentation, decision was made to transfer the patient to [facility] for higher level care. -Blood glucose trended down to 339 from initial 630 Hx of Present Illness Patient is a 47-year-old female with a history of hypertension and type 1 diabetes who presents to the ER complaining of left suprapubic, left flank, left pubic area pain for at least 1 week. On presentation to the ER, she was febrile with a temperature of 101.7, tachycardic with a heart rate of 109, BP 179/91. Initial WBC almost 15,000. Initial lab shows a sodium of 124, creatinine 2, glucose 630, hemoglobin 11, initial lactic acid 2.4, but has been as high as 4.4. Alkaline phosphatase around 300. Patient was started on Zosyn, vancomycin and clindamycin. Chest x-ray shows low lung volumes. Right lung base patchy consolidation. Follow-up to resolution to exclude underlying neoplasm. CT abdomen/pelvis shows the following. 1. LARGE AMOUNT OF SUBCUTANEOUS AIR AND FATTY STRANDING WITHIN THE LEFT PERINEUM AND VAGINAL FOLD, WHICH EXTENDS SUPERIORLY ALONG THE LEFT ANTERIOR PELVIC WALL UP TO THE LEFT UPPER ABDOMEN, AT THE LEVEL OF THE KIDNEYS. FINDINGS ARE HIGHLY CONCERNING FOR GANGRENE/NECROTIZING FASCIITIS. RECOMMEND SURGICAL CONSULTATION. 2. No gross evidence of bowel obstruction. Stool filled loops of large bowel suggestive of constipation. 3. Mild bilateral hydronephrosis without evidence of renal/ureteric calculi. The re is also distension of the bladder with air-fluid level. Findings are concerning for underlying urinary tract infection. Recommend correlation with urinalysis. 4. Mild hepatomegaly. Patient was seen by the on-call surgeon with plan to be taken to the OR, however a decision was made to transfer for higher level care. At the time of transfer, blood glucose was 339, down from 630. There was no sign of DKA. Hospital Course Patient being transferred to [facility] for higher level halfway Meds Reported Medications Metformin* (Glucophage*) 1,000 Mg Tablet, 1000 MG PO WITH BREAKFAST DINNE, #30 TAB 11/16/18 Primary Care Provider Care Physician No Primary Pending Labs Laboratory Tests Test 11/16/18 20:30 11/16/18 20:46 11/16/18 22:33 11/16/18 22:58 White Blood 14.7 Count 10^3/ul (4.8-10 .8) Red Blood 4.04 Count 10^6/ul (4.20-5 .40) Hemoglobin 11.1 g/dl (12.0-16.0 ) Hematocrit 33.4 % (37.0-47.0) Mean 82.7 Corpuscular fl (82.0-101.0) Volume Mean 27.5 Corpuscular pg (29.0-33.0) Hemoglobin Mean 33.2 Corpuscular g/dl (32.0-37.0 Hemoglobin Conc ) ent Red Cell 16.2 Distribution % (11.5-14.5) Width Platelet Count 269 10^3/UL (140-41 5) Mean Platelet 13.8 Volume fl (7.4-10.4) Immature 1.400 Granulocytes % % (0.001-0.429) Neutrophils % % (39.0-77.0) Segmented 69 % (39-77) Neutrophils % (Manual) Band 18 % (0-4) Neutrophils % (Manual) Lymphocytes % % (15.0-51.0) Lymphocytes % 6 % (15-51) (Manual) Monocytes % % (0.0-11.0) Monocytes % 5 % (0-11) (Manual) Eosinophils % % (0.0-7.0) Basophils % % (0.0-2.0) Myelocytes % 1 % (0-0) (Manual) Promyelocytes % 1 % (0-0) (Manual) Nucleated Red 0.3 Blood Cells % /100WBC (0.0-0. 0) Immature 0.200 Granulocytes # 10^3/ul (0.0-0. 031) Neutrophils # 10^3/ul (1.6-7. 5) Neutrophils # 10.5 (Manual) 10^3/ul (1.6-7. 5) Band 2.6 Neutrophils # 10^3/ul (0.0-0. 6) Lymphocytes 0.8 (Manual) 10^3/ul (0.8-2. 9) Lymphocytes # 10^3/ul (0.8-2. 9) Monocytes # 10^3/ul (0.3-0. 9) Monocytes # 0.7 (Manual) 10^3/ul (0.3-0. 9) Eosinophils # 10^3/ul (0.0-0. 5) Basophils # 10^3/ul (0.0-0. 1) Myelocytes # 0.1 10^3/ul (0.0-0. 0) Promyelocytes 0.1 # 10^3/ul (0-0) Nucleated Red 10^3/ul (0.0-0. Blood Cells # 0) Platelet NORMAL Estimate Giant Platelets 1 % (0-0) Polychromasia 1+ (0-0) Poikilocytosis 1+ (0-0) Anisocytosis 1+ (0-0) Macrocytosis 1+ (0-0) Erythrocyte 125 Sedimentation mm/Hr (0-20) Rate Prothrombin 15.4 Time Sec (11.9-14.9) Prothrombin 1.2 Time Ratio INR 1.21 International Normalized Rati o Activated 33.1 Partial Thrombo Sec (23.0-35.0) plast Time Sodium Level 124 mmol/L (135-144 ) Potassium 3.5 Level mmol/L (3.5-5.1 ) Chloride Level 87 mmol/L (97-110) Carbon Dioxide 23 Level mmol/L (21-31) Anion Gap 14 (5-13) Blood Urea 56 mg/dl (7-20) Nitrogen Creatinine 2.00 mg/dl (0.44-1.0 0) Est Glomerular 27 mL/min (>60) Filtrat Rate mL/min Glucose Level 631 mg/dl (70-220) Calcium Level 8.3 mg/dl (8.4-10.2 ) Total 0.3 Bilirubin mg/dl (0.2-1.3) Direct 0.00 Bilirubin mg/dl (0.00-0.2 0) Indirect 0.3 Bilirubin mg/dl (0-1.1) Aspartate Amino 34 IU/L (15-46) Transf (AST/SGO T) Alanine 42 IU/L (13-69) Aminotransferas e (ALT/SGPT) Alkaline 304 Phosphatase IU/L (42-121) Troponin I 0.018 ng/ml (0.000-0. 120) C-Reactive 58.9 Protein mg/dl (0.0-0.9) Total Protein 6.8 g/dl (6.1-8.1) Albumin 2.7 g/dl (3.3-4.9) Globulin 4.10 g/dl (1.3-3.2) Albumin/Globuli 0.65 n Ratio Serum HCG, NEGATIVE (NEGAT Qualitative ARABELLA) POC Venous 2.3 Lactate mmol/L (0.5-2. 0) Bedside 552 Glucose mg/dL (70-220) Lactic Acid 2.3 Level mmol/L (0.5-2. 0) Test 11/17/18 00:49 11/17/18 02:39 11/17/18 03:36 11/17/18 04:58 Lactic Acid 4.4 Level mmol/L (0.5-2.0 ) Bedside 330 319 304 Glucose mg/dL (70-220) mg/dL (70-220) mg/dL (70-220) JOHANN GIBBS MD Nov 17, 2018 05:01
[2018-11-17] MEDS ORDERED: PANTOPRAZOLE 40 MG INJ IV SCH (06:00)
[2018-11-17] MEDS ORDERED: PIPER-TAZO 3.375 GM IV (PMX) 100 ML IVPB SCH (06:00)
[2018-11-17] MEDS ORDERED: PIPER-TAZO 2.25 GM/NS 50 ML IVPB SCH (06:00)
== END 2018-11-17 05:30 | disposition short-term general hospital (02) | DRG 871 ==
LOC: E/R 20:00 → REC 22:43 → EDBEDREQ 23:01 → ICU 11-17 03:22
PROVIDERS: ADMIT Internal Medicine; ATTEND Internal Medicine
DX: A41.9 Sepsis, unspecified organism (principal); M72.6 Necrotizing fasciitis; E87.1 Hypo-osmolality and hyponatremia; E10.52 Type 1 diabetes mellitus with diabetic peripheral angiopathy with gangrene; I96 Gangrene, not elsewhere classified; E87.2 Acidosis; Z79.4 Long term (current) use of insulin; N28.9 Disorder of kidney and ureter, unspecified; E10.65 Type 1 diabetes mellitus with hyperglycemia; D64.9 Anemia, unspecified
CPT/HCPCS: 36415; 71045; 74176; 80053; 82962; 83605; 84484; 84703; 85025; 85610; 85651; 85730; 86140; 86850; 86900; 86901; 93005; 96365; 96367; 96375; J1170; J1815; J2270; J2405; J2543; J3370; J7030